=== PATIENT | female | born 1960 | race Caucasian/White ===

== ENCOUNTER → 2021-10-03 | Outpatient (CLI) | payer OTHER ==
[~2021-10-03] MED LIST: AMLODIPINE BESY10 MG PO; LORTAB 5-325 M1 EACH PO; LOVASTATIN40 MG PO
== END ==
LOC: MAMO 08:30
DX: Z12.31 Encounter for screening mammogram for malignant neoplasm of breast (principal)
CPT/HCPCS: 77063; 77067